=== PATIENT | male | born 1955 | race Caucasian/White ===

== ENCOUNTER 2018-11-15 05:44 | Outpatient (CLI) | payer BC ==
[~2018-11-15] VITALS: Ht 185.4 cm; Wt 139.3 kg
[2018-11-15] MEDS ORDERED: INSU3INS2 SQ (12:15)
[2018-11-15] MEDS ORDERED: ATEN25TA PO (12:15)
[2018-11-15] MEDS ORDERED: ASPI-808 PO (12:15)
[2018-11-15] MEDS ORDERED: CLOP75TA69 PO (12:15)
[2018-11-15] MEDS ORDERED: SIMV40TA4 PO (12:15)
[2018-11-15] MEDS ORDERED: LOSA50TA2 PO (12:15)
[2018-11-15] MEDS ORDERED: CANA300T PO (12:15)
[2018-11-15] MEDS ORDERED: PIRO20CA2 PO (12:15)
[2018-11-15] MEDS ORDERED: OMEP20CA13 PO (12:15)
[2018-11-15] MEDS ORDERED: BACL10TA PO (12:15)
[2018-11-15] MEDS ORDERED: NF-URO10 PO (12:15)
[2018-11-15] MEDS ORDERED: CETI10TA17 PO (12:15)
[2018-11-17] MEDS ORDERED: HYDR-4226 PO (08:45)
== END 2018-11-15 12:42 | disposition home or self-care (01) ==
LOC: PREOP 05:44
PROVIDERS: ATTEND Orthopaedic Surgery Orthopaedic Surgery of the Spine
DX: Z01.818 Encounter for other preprocedural examination (principal)

== ENCOUNTER → 2023-02-10 | Outpatient (CLI) | payer MEDICARE, OTHER ==
[~2023-02-10] MED LIST: ASPI-808 PO; ATEN25TA PO; BACL10TA PO; CANA300T PO; CETI10TA17 PO; CLOP-31 PO; HYDR-4226 PO; INSU3INS2 SQ; LOSA-415 PO; NF-URO10 PO; OMEP20CA18 PO; PIRO20CA2 PO; SIMV40TA25 PO
--- NOTE | 2023-02-10 17:06 | Diagnostic Imaging Report ---
EXAM: LUMBOSACRAL SPINE 4 VIEWS OR > INDICATION: Lumbar fusion and radiculopathy. COMPARISON: None. FINDINGS: Normal alignment of the lumbar spine. Vertebral body heights are preserved. No fractures. Posterior instrumentation with laminectomies and interbody fusions at L2-S1. Hardware components are intact. No evidence of loosening. There is also a left lateral fusion at L2-L3. Advanced spondylotic changes at L1-L2. Partially visualized epidural spinal stimulator. The visualized pelvis is intact. IMPRESSION: 1. Posterior instrumentation, laminectomies and interbody fusions at L2-S1 and left lateral fusion at L2-L3. No evidence of hardware failure. 2. Advanced spondylotic changes at L1-L2. Dictated by: Dictated on workstation # [id number]
== END ==
LOC: RAD 14:18
PROVIDERS: ATTEND Nurse Practitioner
DX: M47.24 Other spondylosis with radiculopathy, thoracic region (principal); Z98.1 Arthrodesis status
CPT/HCPCS: 72110